=== PATIENT | male | born 1990 | race Caucasian/White ===

== ENCOUNTER 2024-06-22 18:45 | Emergency (ER) | payer SELFPAY ==
[~2024-06-22] VITALS: Ht 175.3 cm; Wt 70.0 kg
[2024-06-22 18:48] VITALS: O2SAT 100
[2024-06-23 00:28] VITALS: BP 130/99; PULSE 64; RESP 16; O2SAT 97
== END 2024-06-23 00:32 | disposition home or self-care (01) ==
LOC: ER 18:45
DX: T40.411A Poisoning by fentanyl or fentanyl analogs, accidental (unintentional), initial encounter (principal); F11.90 Opioid use, unspecified, uncomplicated; Y92.9 Unspecified place or not applicable
CPT/HCPCS: 99283; Z7610; A4606